=== PATIENT | male | born 1935 | race Caucasian/White ===

== ENCOUNTER → 2018-02-15 | Outpatient (CLI) | payer OTHER | END | disposition home or self-care (01) | LOC: KCIC US 08:42 | DX: M79.662 Pain in left lower leg (principal) | CPT/HCPCS: 93922; 93925 ==

== ENCOUNTER 2018-03-18 17:51 | Emergency (ER) | payer MEDICARE, OTHER | END 2018-03-18 20:28 | disposition home or self-care (01) | LOC: ER 17:51 | DX: S42.251A Displaced fracture of greater tuberosity of right humerus, initial encounter for closed fracture (principal); M25.532 Pain in left wrist; E11.9 Type 2 diabetes mellitus without complications; E78.00 Pure hypercholesterolemia, unspecified; I10 Essential (primary) hypertension; Z87.891 Personal history of nicotine dependence; Z95.5 Presence of coronary angioplasty implant and graft; W01.0XXA Fall on same level from slipping, tripping and stumbling without subsequent striking against object, initial encounter; Y93.89 Activity, other specified; Y99.8 Other external cause status; Y92.89 Other specified places as the place of occurrence of the external cause | CPT/HCPCS: 73000; 73110; 99284 ==